=== PATIENT | female | born 1935 | race Two or more races ===

== ENCOUNTER 2018-01-06 12:22 | Outpatient (CLI) | payer OTHER | END 2018-01-06 12:25 | disposition home or self-care (01) | LOC: SONOGRAMA 12:22 | DX: E03.8 Other specified hypothyroidism (principal); E04.1 Nontoxic single thyroid nodule ==

== ENCOUNTER → 2019-02-04 | Outpatient (CLI) | payer OTHER | END | disposition home or self-care (01) | LOC: NUCLEAR 10:00 | DX: M81.0 Age-related osteoporosis without current pathological fracture (principal) ==

== ENCOUNTER 2021-01-30 12:53 | Outpatient (CLI) | payer OTHER | END 2021-01-30 14:12 | disposition home or self-care (01) | LOC: TOM 12:53 | PROVIDERS: ATTEND Psychiatry & Neurology Clinical Neurophysiology | DX: F01.50 Vascular dementia, unspecified severity, without behavioral disturbance, psychotic disturbance, mood disturbance, and anxiety (principal); G30.1 Alzheimer's disease with late onset ==

== ENCOUNTER → 2022-04-09 | Emergency (ER) | payer OTHER ==
[~2022-04-09] VITALS: Ht 154.9 cm; Wt 40.8 kg
[~2022-04-09] MED LIST: CLONIDINE HCL0.2 MG; CLOPIDOGREL BIS75 MG; DONEPEZIL HCL10 MG; GABAPENTIN100 M2; GLIMEPIRIDE1 M1; INSULIN GL100 UNIT/3; LOSARTAN POTASS50 MG; LOSARTAN-HCTZ1 EAC2; MEMANTINE HCL10 MG; METOPROLOL SUCC25 MG; RISPERIDONE0.25 MG; SYNTHROID88 MCG; TRULICITY3 MG/0.5 M
== END | disposition designated cancer center or children's hospital (05) ==
LOC: ER 18:15
DX: S09.90XA Unspecified injury of head, initial encounter (principal); W19.XXXA Unspecified fall, initial encounter; Y93.9 Activity, unspecified; Y92.9 Unspecified place or not applicable; I60.9 Nontraumatic subarachnoid hemorrhage, unspecified